=== PATIENT | male | born 1955 | race Caucasian/White ===

== ENCOUNTER 2023-08-19 08:43 | Outpatient (CLI) | payer MEDICARE, OTHER | END 2023-08-19 08:44 | disposition home or self-care (01) | LOC: CSHRAD 08:43 | PROVIDERS: ATTEND Internal Medicine Gastroenterology | DX: K91.89 Other postprocedural complications and disorders of digestive system (principal); K22.2 Esophageal obstruction; K22.0 Achalasia of cardia; K59.00 Constipation, unspecified | CPT/HCPCS: 74220 ==